=== PATIENT | male | born 1970 | race Caucasian/White ===

== ENCOUNTER 2018-06-21 19:08 | Outpatient (REF) | payer BC, SELFPAY ==
[2018-06-21 22:03] LABS: Anion Gap 8.3 mmol/L (3-11); BUN 19 mg/dL (7-18); CO2 29.7 mmol/L (21.0-32.0); CREATININE 0.85 mg/dL (0.70-1.30); Calcium 9.7 mg/dL (8.5-10.1); Chloride 102 mmol/L (98-107); Glucose 95 mg/dL (70-100); Potassium 5.2 mmol/L (3.5-5.1); Sodium 140 mmol/L (136-145)
== END 2018-06-21 19:28 ==
LOC: NCHCN 19:08
PROVIDERS: PCP Nurse Practitioner Family; Visit Provider Registered Nurse
DX: I10 Essential (primary) hypertension (principal)
CPT/HCPCS: 80048

== ENCOUNTER 2018-07-03 07:53 | Outpatient (REF) | payer BC, SELFPAY ==
[2018-07-03 21:02] LABS: Anion Gap 12.3 mmol/L (3-11); BUN 11 mg/dL (7-18); CO2 24.7 mmol/L (21.0-32.0); CREATININE 0.84 mg/dL (0.70-1.30); Calcium 9.3 mg/dL (8.5-10.1); Chloride 101 mmol/L (98-107); Glucose 159 mg/dL (70-100); Potassium 4.7 mmol/L (3.5-5.1); Sodium 138 mmol/L (136-145)
== END 2018-07-03 08:13 ==
LOC: NCHCN 07:53
PROVIDERS: PCP Nurse Practitioner Family; Visit Provider Registered Nurse
DX: I10 Essential (primary) hypertension (principal)
CPT/HCPCS: 80048

== ENCOUNTER 2018-07-24 16:56 | Outpatient (REF) | payer BC, SELFPAY ==
[2018-07-24 22:45] LABS: Anion Gap 11.1 mmol/L (3-11); BUN 18 mg/dL (7-18); CO2 25.9 mmol/L (21.0-32.0); CREATININE 0.94 mg/dL (0.70-1.30); Chloride 103 mmol/L (98-107); Cholesterol 260 mg/dL (50-200); Glucose 87 mg/dL (70-100); HDL Cholesterol 45 mg/dL (40-60); LDL CHOLESTEROL 179 mg/dL (<100); Potassium 4.5 mmol/L (3.5-5.1); Sodium 140 mmol/L (136-145); Triglyceride 230 mg/dL (30-150)
== END 2018-07-24 17:16 ==
LOC: NCHCN 16:56
PROVIDERS: PCP Nurse Practitioner Family; Visit Provider Registered Nurse
DX: Z00.00 Encounter for general adult medical examination without abnormal findings (principal); I10 Essential (primary) hypertension; F11.21 Opioid dependence, in remission
CPT/HCPCS: 80048; 80061; 83721

== ENCOUNTER 2018-08-17 16:43 | Outpatient (REF) | payer BC, SELFPAY ==
[2018-08-17 21:02] LABS: COMMENT (LAB VIEW ONLY) 111.68 mg/dL; Microalb ug/mg Crea 15.4 ug/mg Cr
== END 2018-08-17 17:03 ==
LOC: NCHCN 16:43
PROVIDERS: PCP Nurse Practitioner Family; Visit Provider Registered Nurse
DX: R80.9 Proteinuria, unspecified (principal)
CPT/HCPCS: 82043; 82570

== ENCOUNTER 2019-08-10 12:34 | Outpatient (REF) | payer BC, SELFPAY ==
[2019-08-10 21:47] LABS: Anion Gap 7.1 mmol/L (3-11); BUN 13 mg/dL (7-18); CO2 28.9 mmol/L (21.0-32.0); CREATININE 0.96 mg/dL (0.70-1.30); Calcium 9.4 mg/dL (8.5-10.1); Calculated LDL 194 mg/dL (<100); Chloride 102 mmol/L (98-107); Cholesterol 260 mg/dL (<200); Glucose 120 mg/dL (74-106); HDL Cholesterol 48 mg/dL (40-60); Potassium 5.2 mmol/L (3.5-5.1); Sodium 138 mmol/L (136-145); Triglyceride 91 mg/dL (<150)
== END 2019-08-10 12:54 ==
LOC: NCHCN 12:34
PROVIDERS: PCP Nurse Practitioner Family; Visit Provider Registered Nurse
DX: Z00.00 Encounter for general adult medical examination without abnormal findings (principal); Z13.220 Encounter for screening for lipoid disorders; Z13.228 Encounter for screening for other metabolic disorders
CPT/HCPCS: 80048; 80061

== ENCOUNTER 2019-09-12 17:16 | Outpatient (REF) | payer BC, SELFPAY ==
[2019-09-12 21:35] LABS: Potassium 4.2 mmol/L (3.5-5.1)
[2019-09-12 21:45] LABS: Hemoglobin A1C 6.2 % (3.8-5.6)
== END 2019-09-12 17:36 ==
LOC: NCHCN 17:16
PROVIDERS: PCP Nurse Practitioner Family; Visit Provider Registered Nurse
DX: E78.5 Hyperlipidemia, unspecified (principal); I10 Essential (primary) hypertension
CPT/HCPCS: 83036; 84132

== ENCOUNTER 2020-05-21 17:13 | Outpatient (REF) | payer BC, SELFPAY ==
[2020-05-21 22:26] LABS: COMMENT (LAB VIEW ONLY) 181.68 mg/dL
== END 2020-05-21 17:14 | disposition home or self-care (01) ==
LOC: NCHCN 17:13
PROVIDERS: PCP Nurse Practitioner Family; Visit Provider Registered Nurse
DX: Z83.3 Family history of diabetes mellitus (principal)
CPT/HCPCS: 82043; 82570

== ENCOUNTER 2020-08-06 16:48 | Outpatient (REF) | payer BC, SELFPAY ==
[2020-08-06 21:59] LABS: Anion Gap 11.3 mmol/L (3-11); BUN 21 mg/dL (7-18); CO2 24.7 mmol/L (21.0-32.0); CREATININE 1.1 mg/dL (0.70-1.30); Calcium 9.6 mg/dL (8.5-10.1); Calculated LDL 199 mg/dL (<100); Chloride 103 mmol/L (98-107); Cholesterol 270 mg/dL (<200); Glucose 123 mg/dL (74-106); HDL Cholesterol 37 mg/dL (40-60); Potassium 5.1 mmol/L (3.5-5.1); Sodium 139 mmol/L (136-145); Triglyceride 170 mg/dL (<150)
== END 2020-08-06 16:49 | disposition home or self-care (01) ==
LOC: NCHCN 16:48
PROVIDERS: PCP Nurse Practitioner Family; Visit Provider Registered Nurse
DX: I10 Essential (primary) hypertension (principal); E78.5 Hyperlipidemia, unspecified
CPT/HCPCS: 80048; 80061

== ENCOUNTER 2021-04-01 15:42 | Outpatient (REF) | payer BC, SELFPAY ==
[2021-04-01 16:15] LABS: COMMENT (LAB VIEW ONLY) 94.62 mg/dL; PROTEIN 8.6 mg/dL; Prot/Crea Ur Ratio 0.09
[2021-04-01 16:22] LABS: COMMENT (LAB VIEW ONLY) 94.63 mg/dL; Microalb ug/mg Crea 13.1 ug/mg Cr
== END 2021-04-01 15:43 | disposition home or self-care (01) ==
LOC: NCHCN 15:42
PROVIDERS: PCP Nurse Practitioner Family; Visit Provider Registered Nurse
DX: E11.9 Type 2 diabetes mellitus without complications (principal)
CPT/HCPCS: 82043; 82565; 82570; 84156

== ENCOUNTER 2021-09-23 18:50 | Outpatient (REF) | payer BC, SELFPAY ==
[2021-09-23 21:42] LABS: HCT 38.1 % (40.0-50.0); HGB 12.8 g/dL (13.5-17.5); MCH 28.6 pg (27.0-33.0); MCHC 33.6 % (32.0-36.0); MCV 85 fL (80-95); MPV 10.5 fL (8.0-11.0); Platelet Count 327 10^3/uL (130-400); RBC 4.48 10^6/uL (4.36-5.78); RDW 12.2 % (11.8-14.1); WBC 8.11 10^3/uL (4.4-10.8)
[2021-09-23 22:15] LABS: ALT 30 U/L (16-63); AST 19 U/L (15-37); Albumin 3.6 g/dL (3.4-5.0); Alkaline Phosphatase 69 U/L (46-116); Anion Gap 8.4 mmol/L (3-11); BUN 18 mg/dL (7-18); Bilirubin, Total 0.2 mg/dL (0.2-1.0); CO2 26.6 mmol/L (21.0-32.0); CREATININE 1.2 mg/dL (0.70-1.30); Calcium 9.1 mg/dL (8.5-10.1); Chloride 105 mmol/L (98-107); Glucose 257 mg/dL (74-106); Potassium 3.8 mmol/L (3.5-5.1); Sodium 140 mmol/L (136-145); Total Protein 7.3 g/dL (6.4-8.2)
== END 2021-09-23 18:51 | disposition home or self-care (01) ==
LOC: NCHCN 18:50
PROVIDERS: PCP Nurse Practitioner Family; Visit Provider Registered Nurse
DX: Z00.00 Encounter for general adult medical examination without abnormal findings (principal); I10 Essential (primary) hypertension; E66.9 Obesity, unspecified
CPT/HCPCS: 80053; 85027

== ENCOUNTER 2022-04-16 12:55 | Outpatient (REF) | payer BC, SELFPAY ==
[2022-04-15 21:21] LABS: Abs Immature Grans 0.01 10^3/uL (0.0-0.06); Absolute Basophil Count 0.03 10^3/uL (0.0-0.2); Absolute Eosinophil Count 0.13 10^3/uL (0.0-0.7); Absolute Lymphocyte Count 3.47 10^3/uL (1.2-3.4); Absolute Monocyte Count 0.65 10^3/uL (0.1-0.8); Absolute Neutrophil Count 3.33 10^3/uL (1.2-6.7); Basophils % 0.4; Eosinophils % 1.7; HCT 40.6 % (40.0-50.0); HGB 13.2 g/dL (13.5-17.5); Immature Grans % 0.1; Lymphocytes % 45.5; MCH 27.8 pg (27.0-33.0); MCHC 32.5 % (32.0-36.0); MCV 86 fL (80-95); MPV 10.4 fL (8.0-11.0); Monocytes % 8.5; Neutrophils % 43.8; Platelet Count 309 10^3/uL (130-400); RBC 4.74 10^6/uL (4.36-5.78); RDW 12.6 % (11.8-14.1); RDW-SD 39.6 fL; WBC 7.62 10^3/uL (4.4-10.8)
== END 2022-04-16 12:56 | disposition home or self-care (01) ==
LOC: NCHCN 12:55
PROVIDERS: PCP Nurse Practitioner Family; Visit Provider Registered Nurse
DX: D64.9 Anemia, unspecified (principal)
CPT/HCPCS: 85025

== ENCOUNTER 2022-06-16 16:15 | Outpatient (REF) | payer BC, SELFPAY ==
--- OUTSIDE RECORDS SUMMARY | 2022-06-16 16:19 | XMS_ITS | CCD ---
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 Allergies Unknown or Not Available. Procedures Unknown or Not Available. History of Immunizations Unknown or Not Available. Problems Unknown or Not Available. Results CAROLINAELMER STEINER* - Cecille ect Date/Time: 06/12/2021 09:34 Test Name Code Test Result Test Units Test Ref Rang e Tier- 13429-6 PRE-OP N/A SARS COV2 RNA: 70539-8 NEGATIVE N/A REFERENCE RANGE: NEGAT Active Medications Unknown or Not Available. Medications Administered During Visit Unknown or Not Available. Encounters Encounter Diagnosis Diagnosis Code Start Date Pre-surgery testing [id number] 06/12/2021 Social History Smoking Status Code Start Date End Date Current every day smoker [id number] Patient Decision Aids Unknown or Not Available. Discharge Instructions You were admitted to [facility] on 06/12/2021 19:35 with a principal diagnosis of Encounter for preprocedural laboratory examination You had the following tests done:CAROLINA MONTEROX* You were discharged from [facility] on 06/12/2021 19:35 Should you have any questions prior to discharge, please contact a member of your healthcare team. If you have left the hospital and have any questions, please contact your primary care physician. Chief Complaint and Reason For Visit Unknown or Not Available. Function Status Unknown or Not Available. Plan of Care Unknown or Not Available. Referral/Transition of Care Unknown or Not Available.
[2022-06-16 21:51] LABS: COMMENT (LAB VIEW ONLY) 101.11 mg/dL; Microalb ug/mg Crea 33.6 ug/mg Cr
== END 2022-06-16 16:16 | disposition home or self-care (01) ==
LOC: NCHCN 16:15
PROVIDERS: PCP Nurse Practitioner Family; Visit Provider Registered Nurse
DX: E11.9 Type 2 diabetes mellitus without complications (principal)
CPT/HCPCS: 82043; 82570

== ENCOUNTER 2022-12-29 16:12 | Outpatient (REF) | payer BC, SELFPAY ==
[2022-12-29 21:21] LABS: ALT 23 U/L (16-63); AST 20 U/L (15-37); Albumin 3.6 g/dL (3.4-5.0); Alkaline Phosphatase 80 U/L (46-116); Anion Gap 8.6 mmol/L (3-11); BUN 15 mg/dL (7-18); Bilirubin, Total 0.2 mg/dL (0.2-1.0); CO2 26.4 mmol/L (21.0-32.0); CREATININE 0.9 mg/dL (0.70-1.30); Calcium 9.1 mg/dL (8.5-10.1); Calculated LDL 147 mg/dL (<100); Chloride 102 mmol/L (98-107); Cholesterol 213 mg/dL (<200); Glucose 107 mg/dL (74-106); HDL Cholesterol 46 mg/dL (40-60); Potassium 3.8 mmol/L (3.5-5.1); Sodium 137 mmol/L (136-145); Total Protein 7.8 g/dL (6.4-8.2); Triglyceride 101 mg/dL (<150)
== END 2022-12-29 16:13 | disposition home or self-care (01) ==
LOC: NCHCN 16:12
PROVIDERS: PCP Nurse Practitioner Family; Visit Provider Internal Medicine
DX: E11.9 Type 2 diabetes mellitus without complications (principal); E66.9 Obesity, unspecified; I10 Essential (primary) hypertension; F11.21 Opioid dependence, in remission; E78.5 Hyperlipidemia, unspecified
CPT/HCPCS: 80053; 80061

== ENCOUNTER 2025-01-09 16:42 | Outpatient (REF) | payer MEDICAID, SELFPAY ==
[2025-01-09 22:04] LABS: COMMENT (LAB VIEW ONLY) 43.53 mg/dL
[2025-01-09 22:09] LABS: Microalb ug/mg Crea 588.6 ug/mg Cr
== END 2025-01-09 16:43 | disposition home or self-care (01) ==
LOC: NCHCN 16:42
PROVIDERS: PCP Nurse Practitioner Family; Visit Provider Internal Medicine
DX: E11.9 Type 2 diabetes mellitus without complications (principal)
CPT/HCPCS: 82043; 82570